=== PATIENT | female | born 1955 | race Caucasian/White ===

== ENCOUNTER 2018-12-29 19:54 | Inpatient (IN) | payer BC ==
[~2018-12-29] VITALS: Ht 165.1 cm; Wt 73.5 kg
[2018-12-29] MEDS ORDERED: LEVOTHYROXINE SODIUM 100 MCG TABLET PO ONE (20:15)
[2018-12-29] MEDS ORDERED: MISCELLANEOUS MED XX ONE (20:15)
[2018-12-29] MEDS ORDERED: ACETAMINOPHEN ES 500 MG TABLET PO ONE (20:15)
[2018-12-29] MEDS ORDERED: diphenhydrAMINE 25 MG CAP PO ONE (20:30)
[2018-12-29 20:43] LABS: BASOPHILS % (AUTO) 0.2 % (0.0-2.0); HEMATOCRIT 29.6 % (31.2-41.9); HEMOGLOBIN 10.4 g/dL (10.9-14.3); LYMPHOCYTES # (AUTO) 2.2 K/uL (20.0-40.0); LYMPHOCYTES % (AUTO) 29.5 % (20.5-51.5); MEAN CORPUSCULAR HEMOGLOBIN 31.6 uug (24.7-32.8); MEAN CORPUSCULAR HGB CONC 35 g/dL (32.3-35.6); MEAN CORPUSCULAR VOLUME 90.1 fL (75.5-95.3); MONOCYTES # (AUTO) 0.7 K/uL (2.0-10.0); MONOCYTES % (AUTO) 9.2 % (0.0-11.0); NEUTROPHILS # (AUTO) 4.6 K/uL (1.8-8.9); NEUTROPHILS % (AUTO) 61.1 % (38.5-71.5); PLATELET COUNT (AUTO) 209 K/uL (179-408); RED BLOOD CELL COUNT(AUTO) 3.28 MIL/uL (3.63-4.92); WHITE BLOOD COUNT (AUTO) 7.5 K/uL (3.8-11.8)
[2018-12-29 20:49] LABS: CREATININE 0.8 mg/dL (0.6-1.3); POTASSIUM 4.1 mmol/L (3.5-5.1)
[2018-12-29 20:55] LABS: BILIRUBIN,TOTAL 1.2 mg/dL (0.2-1.0); MAGNESIUM 2.1 mg/dL (1.8-2.4); PHOSPHOROUS 3.4 mg/dL (2.5-4.9); TOTAL PROTEIN, SERUM 6.7 g/dL (6.4-8.2)
[2018-12-29] MEDS ORDERED: ATORVASTATIN 10 MG TABLET PO SCH (21:00)
[2018-12-29 21:20] VITALS: BP 132/40
[2018-12-29 21:30] VITALS: BP 132/40
[2018-12-29] MEDS ORDERED: PANTOPRAZOLE SODIUM 40 MG TABLET.DR PO SCH (21:30)
[2018-12-29] MEDS: DOCUSATE SODIUM 100 MG CAPSULE PO SCH (21:55)
[2018-12-29] MEDS: OXYCODONE HCL 10 MG TAB.SR.12H PO SCH (21:56)
[2018-12-30] VITALS (7 sets, daily range): BP systolic 116–149; BP diastolic 44–65
[2018-12-30] MEDS ORDERED: RIVAROXABAN 10 MG TABLET ONE (06:02)
[2018-12-30] MEDS ORDERED: RIVAROXABAN 10 MG TABLET PO SCH (07:00)
[2018-12-30] MEDS: PANTOPRAZOLE SODIUM 40 MG TABLET.DR PO SCH (07:05)
[2018-12-30] MEDS: DOCUSATE SODIUM 100 MG CAPSULE PO SCH ×2 (08:39→16:17)
[2018-12-30] MEDS: OXYCODONE HCL 10 MG TAB.SR.12H PO SCH ×2 (08:42→20:26)
[2018-12-30] MEDS ORDERED: ATOR10TA PO (09:20)
[2018-12-30] MEDS ORDERED: LEVO112T2 PO (09:21)
[2018-12-30 11:05] LABS: BASOPHILS % (AUTO) 0.1 % (0.0-2.0); HEMATOCRIT 28.7 % (31.2-41.9); HEMOGLOBIN 9.7 g/dL (10.9-14.3); LYMPHOCYTES # (AUTO) 2.3 K/uL (20.0-40.0); MEAN CORPUSCULAR HEMOGLOBIN 30.9 uug (24.7-32.8); MEAN CORPUSCULAR HGB CONC 34 g/dL (32.3-35.6); MONOCYTES # (AUTO) 0.7 K/uL (2.0-10.0); MONOCYTES % (AUTO) 8.8 % (0.0-11.0); NEUTROPHILS # (AUTO) 4.6 K/uL (1.8-8.9); NEUTROPHILS % (AUTO) 61.1 % (38.5-71.5); PLATELET COUNT (AUTO) 210 K/uL (179-408); RED BLOOD CELL COUNT(AUTO) 3.15 MIL/uL (3.63-4.92); WHITE BLOOD COUNT (AUTO) 7.5 K/uL (3.8-11.8)
[2018-12-30 11:18] LABS: CREATININE 0.8 mg/dL (0.6-1.3)
[2018-12-30 11:24] LABS: BILIRUBIN,TOTAL 1.3 mg/dL (0.2-1.0); PHOSPHOROUS 2.9 mg/dL (2.5-4.9); TOTAL PROTEIN, SERUM 6.3 g/dL (6.4-8.2)
[2018-12-30] MEDS: TRIAMCINOLONE ACET 0.1% CREAM 15 GM TUBE TOP SCH (16:16)
[2018-12-30] MEDS ORDERED: diphenhydrAMINE 25 MG CAP PO PRN (20:45)
[2018-12-31] VITALS: BP 99/40
[2018-12-31 04:00] VITALS: BP 105/40
[2018-12-31] MEDS: LEVOTHYROXINE SODIUM 112 MCG TABLET PO SCH (06:08)
[2018-12-31] MEDS: PANTOPRAZOLE SODIUM 40 MG TABLET.DR PO SCH (06:08)
[2018-12-31 06:31] LABS: HEMATOCRIT 28.9 % (31.2-41.9); LYMPHOCYTES # (AUTO) 2.6 K/uL (20.0-40.0); LYMPHOCYTES % (AUTO) 34.8 % (20.5-51.5); MEAN CORPUSCULAR HEMOGLOBIN 31.2 uug (24.7-32.8); MEAN CORPUSCULAR HGB CONC 35 g/dL (32.3-35.6); MEAN CORPUSCULAR VOLUME 89.7 fL (75.5-95.3); MONOCYTES # (AUTO) 0.8 K/uL (2.0-10.0); MONOCYTES % (AUTO) 10.6 % (0.0-11.0); NEUTROPHILS # (AUTO) 4.1 K/uL (1.8-8.9); NEUTROPHILS % (AUTO) 54.6 % (38.5-71.5); PLATELET COUNT (AUTO) 262 K/uL (179-408); RED BLOOD CELL COUNT(AUTO) 3.22 MIL/uL (3.63-4.92); WHITE BLOOD COUNT (AUTO) 7.6 K/uL (3.8-11.8)
[2018-12-31 06:42] LABS: BILIRUBIN,TOTAL 1.1 mg/dL (0.2-1.0); CREATININE 0.8 mg/dL (0.6-1.3); MAGNESIUM 2.1 mg/dL (1.8-2.4); PHOSPHOROUS 3.7 mg/dL (2.5-4.9); POTASSIUM 4.4 mmol/L (3.5-5.1); TOTAL PROTEIN, SERUM 6.6 g/dL (6.4-8.2)
[2018-12-31] MEDS: DOCUSATE SODIUM 100 MG CAPSULE PO SCH ×2 (08:02→17:19)
[2018-12-31] MEDS: OXYCODONE HCL 10 MG TAB.SR.12H PO SCH ×2 (08:03→20:43)
[2018-12-31 08:25] VITALS: BP 125/56
[2018-12-31] MEDS: TRIAMCINOLONE ACET 0.1% CREAM 15 GM TUBE TOP SCH ×2 (10:02→17:19)
[2018-12-31 11:09] LABS: THYROID STIMULATING HORMONE 32.179 mIU/mL (0.358-3.740)
[2018-12-31 12:20] VITALS: BP 113/56
[2018-12-31] MEDS: TRAMADOL HCL 50 MG TABLET PO PRN (12:49)
[2018-12-31 15:19] VITALS: BP 127/39
[2018-12-31] MEDS: RIVAROXABAN 10 MG TABLET PO SCH (17:19)
[2018-12-31 20:00] VITALS: BP 114/49
[2019-01-01] VITALS: BP 115/40
[2019-01-01 04:00] VITALS: BP 126/51
[2019-01-01] MEDS: LEVOTHYROXINE SODIUM 112 MCG TABLET PO SCH (06:11)
[2019-01-01] MEDS: PANTOPRAZOLE SODIUM 40 MG TABLET.DR PO SCH (06:11)
[2019-01-01 08:00] VITALS: BP 118/52
[2019-01-01] MEDS: OXYCODONE HCL 10 MG TAB.SR.12H PO SCH ×2 (08:21→20:14)
[2019-01-01] MEDS: DOCUSATE SODIUM 100 MG CAPSULE PO SCH ×2 (08:21→17:14)
[2019-01-01] MEDS: TRIAMCINOLONE ACET 0.1% CREAM 15 GM TUBE TOP SCH ×2 (08:22→17:15)
[2019-01-01] MEDS ORDERED: MAGNESIUM HYDROXIDE 30 ML LIQUID UDC PO PRN (11:00)
[2019-01-01 12:55] VITALS: BP 123/46
[2019-01-01 15:44] VITALS: BP 125/56
[2019-01-01] MEDS: RIVAROXABAN 10 MG TABLET PO SCH (17:15)
[2019-01-01 19:42] VITALS: BP 131/60
[2019-01-02 00:29] VITALS: BP 106/48
[2019-01-02 05:08] VITALS: BP 116/56
[2019-01-02] MEDS: PANTOPRAZOLE SODIUM 40 MG TABLET.DR PO SCH (06:41)
[2019-01-02] MEDS: LEVOTHYROXINE SODIUM 112 MCG TABLET PO SCH (06:41)
[2019-01-02] MEDS: OXYCODONE HCL 10 MG TAB.SR.12H PO SCH ×2 (08:07→20:18)
[2019-01-02] MEDS: TRAMADOL HCL 50 MG TABLET PO PRN (08:43)
[2019-01-02] MEDS: TRIAMCINOLONE ACET 0.1% CREAM 15 GM TUBE TOP SCH ×2 (09:00→17:00)
[2019-01-02] MEDS: DOCUSATE SODIUM 100 MG CAPSULE PO SCH ×2 (09:49→17:22)
[2019-01-02 11:15] VITALS: BP 117/44
[2019-01-02 15:25] VITALS: BP 122/40
[2019-01-02] MEDS: RIVAROXABAN 10 MG TABLET PO SCH (17:30)
[2019-01-02 20:06] VITALS: BP 121/55
[2019-01-03 00:46] VITALS: BP 117/53
[2019-01-03 04:57] VITALS: BP 116/44
[2019-01-03 05:46] LABS: HEMATOCRIT 29.5 % (31.2-41.9); HEMOGLOBIN 10.2 g/dL (10.9-14.3); LYMPHOCYTES # (AUTO) 2.5 K/uL (20.0-40.0); LYMPHOCYTES % (AUTO) 33.5 % (20.5-51.5); MEAN CORPUSCULAR HEMOGLOBIN 32.7 uug (24.7-32.8); MEAN CORPUSCULAR HGB CONC 35 g/dL (32.3-35.6); MEAN CORPUSCULAR VOLUME 94.6 fL (75.5-95.3); MONOCYTES # (AUTO) 0.7 K/uL (2.0-10.0); MONOCYTES % (AUTO) 8.6 % (0.0-11.0); NEUTROPHILS # (AUTO) 4.4 K/uL (1.8-8.9); NEUTROPHILS % (AUTO) 57.9 % (38.5-71.5); PLATELET COUNT (AUTO) 289 K/uL (179-408); RED BLOOD CELL COUNT(AUTO) 3.11 MIL/uL (3.63-4.92); WHITE BLOOD COUNT (AUTO) 7.6 K/uL (3.8-11.8)
[2019-01-03 06:00] LABS: BILIRUBIN,DIRECT 0.2 mg/dL (0.0-0.2); CREATININE 0.9 mg/dL (0.6-1.3); POTASSIUM 4.9 mmol/L (3.5-5.1); TOTAL PROTEIN, SERUM 6.5 g/dL (6.4-8.2)
[2019-01-03] MEDS: LEVOTHYROXINE SODIUM 112 MCG TABLET PO SCH (06:10)
[2019-01-03] MEDS: PANTOPRAZOLE SODIUM 40 MG TABLET.DR PO SCH (06:10)
[2019-01-03] MEDS: OXYCODONE HCL 10 MG TAB.SR.12H PO SCH ×2 (08:19→20:27)
[2019-01-03] MEDS: TRAMADOL HCL 50 MG TABLET PO PRN (08:21)
[2019-01-03] MEDS: TRIAMCINOLONE ACET 0.1% CREAM 15 GM TUBE TOP SCH ×2 (09:00→17:00)
[2019-01-03 11:12] VITALS: BP 102/46
[2019-01-03] MEDS: DOCUSATE SODIUM 100 MG CAPSULE PO SCH ×2 (11:55→17:16)
[2019-01-03] MEDS: LACTULOSE 20 G/30 ML LIQUID UDC PO SCH ×2 (15:09→17:15)
[2019-01-03 15:21] VITALS: BP 121/50
[2019-01-03] MEDS: RIVAROXABAN 10 MG TABLET PO SCH (17:17)
[2019-01-03 20:52] VITALS: BP 117/55
[2019-01-04] VITALS: BP 124/60
[2019-01-04 04:00] VITALS: BP 115/60
[2019-01-04] MEDS: PANTOPRAZOLE SODIUM 40 MG TABLET.DR PO SCH (06:13)
[2019-01-04] MEDS: LEVOTHYROXINE SODIUM 112 MCG TABLET PO SCH (06:13)
[2019-01-04] MEDS: OXYCODONE HCL 10 MG TAB.SR.12H PO SCH (08:55)
[2019-01-04] MEDS: DOCUSATE SODIUM 100 MG CAPSULE PO SCH (08:55)
[2019-01-04] MEDS: TRAMADOL HCL 50 MG TABLET PO PRN (08:56)
[2019-01-04] MEDS: LACTULOSE 20 G/30 ML LIQUID UDC PO SCH (08:59)
[2019-01-04] MEDS: TRIAMCINOLONE ACET 0.1% CREAM 15 GM TUBE TOP SCH (09:00)
[2019-01-04] MEDS ORDERED: DOCU100C36 PO (11:31)
[2019-01-04] MEDS ORDERED: RIVA10TA PO (11:31)
[2019-01-04] MEDS ORDERED: MAGN400O6 PO (11:31)
[2019-01-04] MEDS ORDERED: TRAM50TA2 PO (11:31)
[2019-01-04] MEDS ORDERED: Oxycodone Sr PO (11:31)
[2019-01-04 11:42] VITALS: BP 113/31
== END 2019-01-04 13:35 | DRG 206 ==
LOC: ER 19:54 → TELE3 21:09 → TELE-TD3 21:51 → TELE3 12-31 16:28 → MEDSURG3 01-04 08:40
PROVIDERS: ADMIT Internal Medicine Interventional Cardiology; ATTEND Nurse Practitioner Acute Care
DX: M94.0 Chondrocostal junction syndrome [Tietze] (principal); E46 Unspecified protein-calorie malnutrition; R06.02 Shortness of breath; R07.89 Other chest pain; R60.0 Localized edema; R09.02 Hypoxemia; E78.5 Hyperlipidemia, unspecified; E03.9 Hypothyroidism, unspecified; S72.402D Unspecified fracture of lower end of left femur, subsequent encounter for closed fracture with routine healing; V19.9XXD Pedal cyclist (driver) (passenger) injured in unspecified traffic accident, subsequent encounter; R74.0 Nonspecific elevation of levels of transaminase and lactic acid dehydrogenase [LDH]; T39.1X5A Adverse effect of 4-Aminophenol derivatives, initial encounter; Y92.89 Other specified places as the place of occurrence of the external cause; D50.0 Iron deficiency anemia secondary to blood loss (chronic); K59.00 Constipation, unspecified; I10 Essential (primary) hypertension; Z80.3 Family history of malignant neoplasm of breast
CPT/HCPCS: 36415; 70030-TC; 71045; 73551; 76700; 83550; 83735; 84100; 84443; 85025; 93307; A4663; A9150; G0378; G0480-TC; Q0163